=== PATIENT | female | born 1960 | race Caucasian/White ===

== ENCOUNTER 2020-02-19 17:34 | Emergency (ER) | payer MEDICAID, SELFPAY ==
[2020-02-19 17:52] VITALS: BP 131/87; PULSE 80; RESP 18; TEMP 37.1; O2SAT 99; BMI 29.8
--- NOTE | 2020-02-19 18:05 | ED_ITS ---
HPI - Skin/Abscess/Foreign Bdy General: Chief complaint: Skin/Abscess/Foreign Body Stated complaint: issue with left breast Time Seen by Provider: 02/19/20 17:49 Source: patient Mode of arrival: ambulatory Limitations: no limitations History of Present Illness: HPI narrative: 59-year-old female who presents here with a area of erythema to her left breast. She denies any drainage from the spot states that roughly 1 to 2 cm in diameter. She states that slightly painful to touch and rates the pain a 2 out of 10 and is sharp in nature. She denies any fevers. Denies any worsening improving factors. Associated symptoms: Deny chills, fever(s), nausea or vomiting Review of Systems Const: Denies: fever(s), chills, body aches or change in appetite Eyes: Denies: blurry vision or eye discomfort ENMT: Denies: throat pain or dental pain Card: Denies: chest pain Resp: Denies: dyspnea GI: Denies: abdominal pain, nausea, vomiting or diarrhea : Denies: dysuria Musc: Denies: neck pain or back pain Skin/Breast: Denies: rash Neuro: Denies: headache(s) Psych: Denies: depression Jose Antonio/Lymph: Denies: easy bruising All/Imm: Denies: urticaria Physical Exam Const: COMMON NORMALS: no acute distress, patient oriented x3 and healthy appearing HENMT: COMMON NORMALS: normocephalic and atraumatic HEAD & SCALP: normocephalic and atraumatic Eye: COMMON NORMALS: Equal, round and reactive pupils present and EOMs intact bilaterally PUPIL: Yes Equal, round and reactive pupils present Neck/C-Spine: COMMON NORMALS: full ROM and supple Chest: COMMONS NORMALS: normal inspection of the chest and normal palpation of entire chest wall Resp: COMMON NORMALS: normal respiratory effort, No retractions, No use of accessory muscles and clear to auscultation bilaterally AUSCULTATION: clear to auscultation bilaterally Cardio: COMMON NORMALS: regular rate, regular rhythm and No murmurs present (Cardio) RATE: regular rate RHYTHM: regular rhythm GI: COMMON NORMALS: Normal to inspection, nondistended, normoactive bowel sounds present, Soft to palpation, non-tender and no masses PALPATION: Yes Soft to palpation Extremity: COMMON NORMALS: normal to inspection and full ROM Neuro: COMMON NORMALS: patient oriented x3, moves all extremities and no focal motor deficits Psych: COMMON NORMALS: mental status grossly normal, Normal thought process present and cooperative THOUGHT PROCESS: Normal thought process present Skin: NARRATIVE SKIN EXAM: 1 to 2 cm area of erythema to left breast noted on exam. No obvious abscess formation at this time. Course Vital Signs: Vital signs: Vital Signs Temperature 98.7 F 02/19/20 17:52 Pulse Rate 80 02/19/20 17:52 Respiratory Rate 18 02/19/20 17:52 Blood Pressure 131/87 02/19/20 17:52 Pulse Oximetry 99 02/19/20 17:52 MDM - Skin/Abscess/Foreign Bdy MDM Narrative: Medical decision making narrative: Patient presents here with cellulitis and possible early abscess formation of the left breast. She has no obvious abscess at this time I do not see the area to try to drain. We will have her do warm compresses and place her on Bactrim and she is to return if worsening. She understands agrees to plan. Discharge Plan Discharge Patient Disposition: Home Clinical Impression: Abscess of skin or subcutaneous tissue Qualifiers: Site of cutaneous abscess: unspecified site Qualified Code(s): L02.91 - Cutaneous abscess, unspecified Condition: Stable Prescriptions: New Bactrim DS 800-160 mg tablet 1 tab PO BID 10 Days Qty: 20 RF: 0 Discharge Orders: Discharge Order (Routine); Ordered 02/19/20 Ordered By: Elina Gomez Referrals: Salas George DO [Primary Care Provider] - 1-3 days Discharge Diet: Advance as tolerated Discharge Activity: Resume usual activity Patient Instructions: Abscess (ED) Coding Level of Care Code ED White Sugar Supervisor for Kevin Betts
== END 2020-02-19 18:11 | disposition home or self-care (01) ==
PROVIDERS: Emergency Provider Emergency Medicine; PCP Internal Medicine
DX: L02.91 Cutaneous abscess, unspecified (principal)
CPT/HCPCS: 12345; 99281

== ENCOUNTER 2022-04-28 14:55 | Emergency (ER) | payer MEDICAID, SELFPAY ==
[2022-04-28 15:18] VITALS: BP 125/77; PULSE 82; RESP 14; TEMP 36.7; O2SAT 98
[2022-04-28 17:22] VITALS: BP 112/72
--- NOTE | 2022-04-28 17:53 | XRR_ITS ---
PROCEDURE INFORMATION: Exam: XR Left Shoulder Exam date and time: 04/28/2022 6:06 PM Age: 61 years old Clinical indication: Pain; Shoulder; Left; Additional info: Trauma TECHNIQUE: Imaging protocol: Radiologic exam of the Left shoulder. Views: 2 or more views. COMPARISON: No relevant prior studies available. FINDINGS: Bones/joints: There is an impacted fracture of the surgical neck left humerus with mild angulation. The left acromioclavicular joint alignment is intact. There is sclerosis and deformity of the greater tuberosity humerus that may reflect old healed fracture. No dislocation. The visualized ribs are intact. Lungs: The visualized lung apex is clear. Soft tissues: Mild edema. XR/XR shoulder LT min 2V* [id number] IMPRESSION: There is an impacted fracture of the surgical neck left humerus with mild angulation. There is also sclerosis and deformity of the greater tuberosity humerus suspected to be an old injury.
--- NOTE | 2022-04-28 17:53 | XRR_ITS ---
PROCEDURE INFORMATION: Exam: XR Right Clavicle, Complete Exam date and time: 04/28/2022 6:06 PM Age: 61 years old Clinical indication: Pain; Other: Clavicle; Additional info: Trauma TECHNIQUE: Imaging protocol: Radiologic exam of the Right clavicle. Complete exam. Views: Any number of views. COMPARISON: No relevant prior studies available. FINDINGS: Bones/joints: Normal. No acute fracture or dislocation. There are moderate to severe acromioclavicular joint degenerative changes with probable acromioclavicular joint effusion. Glenohumeral joint alignment is intact. Lungs: Right lung apex is clear. Pleural space: There is no evidence of pneumothorax. Soft tissues: Normal. XR/[place] [id number] IMPRESSION: No acute findings.
--- NOTE | 2022-04-28 17:55 | W.ED.FALL ---
HPI - Fall General: Chief Complaint: Fall Stated Complaint: fall, left arm pain Time Seen by Provider: 04/28/22 17:25 History of Present Illness: Patient comes in with left shoulder pain. States that she was outside when she slipped on the ice and fell landing on her left shoulder. States it hurts to move. On physical exam she has tenderness palpation over the anterior aspect of her left shoulder. Her left arm is neurovascularly intact. Associated symptoms-after fall: Denies abdominal pain, chest pain, headache(s) or neck pain Review of Systems Const: Denies: fever(s) or body aches Eyes: Denies: change in vision or blurry vision ENMT: Denies: throat pain or odynophagia Card: Denies: chest pain or palpitations Resp: Denies: dyspnea or productive cough GI: Denies: abdominal pain, nausea or vomiting : Denies: flank pain or dysuria Musc: Denies: neck pain or back pain Skin/Breast: Denies: rash or pruritus Neuro: Denies: headache(s) or numbness in extremities Psych: Denies: anxiety or change in appetite Endo: Denies: polyuria or excessive sweating Physical Exam Const: COMMON NORMALS: patient oriented x3, healthy appearing and alert HENMT: COMMON NORMALS: normocephalic and atraumatic HEAD & SCALP: normocephalic and atraumatic Eye: COMMON NORMALS: Equal, round and reactive pupils present and EOMs intact bilaterally PUPIL: Yes Equal, round and reactive pupils present Neck/C-Spine: COMMON NORMALS: full ROM and supple Resp: COMMON NORMALS: normal respiratory effort, No retractions and No use of accessory muscles Extremity: OTHER: Tenderness to palpation of the anterior left shoulder, decreased range of motion due to pain Neuro: COMMON NORMALS: patient oriented x3 SENSORIUM/ORIENTATION: Yes alert Psych: COMMON NORMALS: mental status grossly normal and cooperative Skin: COMMON NORMALS: no rashes or lesions noted and no wounds GENERAL SKIN EXAM: no rashes or lesions noted Course Vital Signs: Vital signs: Vital Signs Temperature 98.1 F 04/28/22 15:18 Pulse Rate 82 04/28/22 15:18 Respiratory Rate 14 04/28/22 15:18 Blood Pressure 112/72 04/28/22 17:22 Pulse Oximetry 98 04/28/22 15:18 Oxygen Delivery Me thod 04/28/22 15:18 MDM - Fall Medical Decision Making Patient comes in with left shoulder pain. States that she was outside when she slipped on the ice and fell landing on her left shoulder. States it hurts to move. On physical exam she has tenderness palpation over the anterior aspect of her left shoulder. Her left arm is neurovascularly intact. Will check x-ray, and reassess. On reassessment I talked to the patient about the test results. We will place her in a sling, prescribed pain medication, refer to orthopedic surgery, and discharged with precautions to return for worsening or changing symptoms. Lab Data Radiology Impressions Clavicle X-Ray 04/28/22 17:53 IMPRESSION: No acute findings. Shoulder X-Ray 04/28/22 17:53 IMPRESSION: There is an impacted fracture of the surgical neck left humerus with mild angulation. There is also sclerosis and deformity of the greater tuberosity humerus suspected to be an old injury. Discharge Plan Discharge Patient Disposition: Home Clinical Impression: Fracture, humerus Condition: Stable Prescriptions: New hydrocodone-acetaminophen 5-325 mg tablet 1 tab PO Q6H PRN (Reason: pain) Qty: 20 0RF Discharge Orders: Discharge ED (Routine); Ordered 04/28/22 Ordered By: Vlad Prince Referrals: Tiffany Padron FNP [Primary Care Provider] - Kenroy Chavez DO [Physician] - Patient Instructions: Proximal Humerus Fracture (ED), Opioid Safety, Pain Management Coding Level of Care Code ED Inventory Checker for Chg Fwd Exam Detailed
[2022-04-28 20:27] VITALS: RESP 20
== END 2022-04-28 20:29 | disposition home or self-care (01) ==
PROVIDERS: Emergency Provider Emergency Medicine; PCP Nurse Practitioner Family
DX: S42.212A Unspecified displaced fracture of surgical neck of left humerus, initial encounter for closed fracture (principal); W00.0XXA Fall on same level due to ice and snow, initial encounter
CPT/HCPCS: 73000; 73030; 99283

== ENCOUNTER → 2022-05-08 15:31 | Outpatient (BNVA) | payer MEDICAID, SELFPAY | PROVIDERS: PCP Nurse Practitioner Family; Visit Provider Student in an Organized Health Care Education/Training Program | DX: S42.202A Unspecified fracture of upper end of left humerus, initial encounter for closed fracture (principal); W00.0XXA Fall on same level due to ice and snow, initial encounter | CPT/HCPCS: 23600; 73030; 99204 ==

== ENCOUNTER → 2022-06-09 09:24 | Outpatient (BNVA) | payer MEDICAID, SELFPAY | PROVIDERS: PCP Nurse Practitioner Family; Visit Provider Student in an Organized Health Care Education/Training Program | DX: S42.202A Unspecified fracture of upper end of left humerus, initial encounter for closed fracture (principal); X58.XXXA Exposure to other specified factors, initial encounter | CPT/HCPCS: 73030; 99213 ==

== ENCOUNTER → 2022-07-25 13:49 | Outpatient (BNVA) | payer MEDICAID, SELFPAY | PROVIDERS: PCP Nurse Practitioner Family; Visit Provider Student in an Organized Health Care Education/Training Program | DX: S42.202A Unspecified fracture of upper end of left humerus, initial encounter for closed fracture (principal); W00.0XXA Fall on same level due to ice and snow, initial encounter | CPT/HCPCS: 73030; 99213 ==

== ENCOUNTER → 2022-08-14 13:25 | Outpatient (BNVA) | payer MEDICAID, SELFPAY | PROVIDERS: PCP Nurse Practitioner Family; Visit Provider Student in an Organized Health Care Education/Training Program | DX: M17.11 Unilateral primary osteoarthritis, right knee (principal) | CPT/HCPCS: 73560; 73565; 99214 ==

== ENCOUNTER → 2022-08-19 14:24 | Outpatient (BNVA) | payer MEDICAID, SELFPAY | PROVIDERS: PCP Nurse Practitioner Family; Visit Provider Family Medicine | DX: Z01.818 Encounter for other preprocedural examination (principal) | CPT/HCPCS: 80048; 85025 ==

== ENCOUNTER 2022-08-28 12:39 | Outpatient (CLI) | payer MEDICAID, SELFPAY ==
--- NOTE | 2022-08-28 13:15 | CT_ITS ---
WS: [id number] CT RIGHT KNEE, NONCONTRAST TECHNIQUE: Noncontrast CT of the RIGHT knee to include the RIGHT hip and ankle. CLINICAL INFORMATION: M17.11 - Unilateral primary osteoarthritis, right knee COMPARISON: None. DLP: 866.[address] scans at [facility] use at least one of these dose optimization techniques: automated e xposure control; mA and/or kV adjustment per patient size (includes targeted exams where dose is matc hed to clinical indication); or iterative reconstruction. FINDINGS: Advanced degenerative narrowing RIGHT knee medial joint compartment with [id number]-lt-ghgo articulation. A ssociated subchondral sclerosis. Hypertrophic changes along the joint line. Small supra patellar effu jessica. Hypertrophic patella. Small lobulated popliteal cyst. Mild degenerative narrowing both hips. CT/CT knee RT wo con* [id number] IMPRESSION: Images obtained for preoperative purposes.
== END 2022-08-28 12:40 | disposition home or self-care (01) ==
LOC: RAD 12:42
PROVIDERS: PCP Nurse Practitioner Family; Visit Provider Student in an Organized Health Care Education/Training Program
DX: M17.11 Unilateral primary osteoarthritis, right knee (principal)
CPT/HCPCS: 73700

== ENCOUNTER 2022-09-03 10:19 | Observation (INO) | payer MEDICAID, SELFPAY ==
[2022-09-02 11:25] VITALS: BMI 30.2
[2022-09-02 12:14] LABS: Basophils # 0.1 10^3/uL (0.0-0.1); Basophils % 0.7 %; Eosinophils # 0.1 10^3/uL (0.0-0.8); Eosinophils % 1.1 %; Hemoglobin 13.9 g/dL (11.5-15.3); Lymphocytes # 3.5 10^3/uL (0.8-4.8); Lymphocytes % 36.6 %; Mean Corpuscular HGB Conc 33.1 g/dL (30.0-36.0); Mean Corpuscular Hemoglobin 30.8 pg (28.0-34.0); Mean Corpuscular Volume 93.1 fl (81-99); Mean Platelet Volume 9.9 fL (7.4-10.4); Monocytes # 0.6 10^3/uL (0.2-0.9); Monocytes % 6.5 %; Neutrophils # 5.26 10^3/uL (1.8-7.7); Neutrophils % 54.8 %; Nucleated Red Blood Cells % 0 %; Platelet Count 329 10^3/cmm (130-400); Red Blood Count 4.51 10^6/uL (4.1-5.3); Red Cell Distribution Width 12.3 % (12.1-15.1); White Blood Count 9.6 10^3/uL (4.0-10.0)
--- NOTE | 2022-09-02 12:27 | P.ANESASSM_ITS ---
Pre-Anesthetic Assessment Height/Weight: Height 1.52 m Weight 70.307 kg Operation Date: 09/03/22 07:00 Proposed Procedures p Geovanni Robot Total Knee Arthroplasty(Right) - Kenroy Chavez DO Familial anesthetic complications: None Social No alcohol and No tobacco Exam alert, oriented x 3, clear to auscultation bilaterally and regular rate & rhythm Airway Mallampati: Class II Dentition: false History/ROS No significant complaints Anesthetic Plan ASA status: 1 Anesthesia: General Risk of > 500 ml blood loss (7ml/kg in children): No Medications/Allergies Home Medications Medication Instructions Recorded Confirmed Last Taken Type ibuprofen 200 mg PO PRN PRN Pain 09/02/22 09/02/22 Unknown History Allergies Allergy/AdvReac Type Severity Reaction Status Date / Time Penicillins Allergy ALGY-Anaphy Verified 08/30/22 08:01 laxis [facility] Anesthesia Medical History Closed fracture of left proximal humerus Data Anesthesia 09/02/22 11:55 09/02/22 11:55 Short CBC 09/02/22 Range/Units 11:55 WBC 9.6 (4.0-10.0) 10^3/uL Hgb 13.9 (11.5-15.3) g/dL Hct 42.0 (37.0-47.0) % MCV 93.1 (81-99) fl Plt Count 329 (130-400) 10^3/cmm Neut % (Auto) 54.8 % Neut # (Auto) 5.26 (1.8-7.7) 10^3/uL Cardiac Studies: No Data to Display
[2022-09-02 12:35] LABS: Blood Urea Nitrogen 10 mg/dL (8-23); Calcium 9.6 mg/dL (8.5-10.5); Carbon Dioxide 24 mmol/L (22-29); Chloride 104 mmol/L (98-107); Glucose 84 mg/dL (65-115); Osmolality Calculated 288 mOsm/kg (285-295); Sodium 140 mmol/L (136-145)
[2022-09-02 12:55] LABS: Add Urine Microscopic? YES; Bilirubin Urine Neg (Negative); Blood Urine 2+ (Negative); Glucose Urine UA Norm (Normal); Ketones Urine Negative (Negative); Leukocyte Esterase Urine Negative (Negative); Nitrate Urine Negative (Negative); Protein Urine Neg (Negative); Urine Appearance Clear (CLEAR); Urine Color Light yellow (Yellow); Urobilinogen Urine Norm (Negative); pH Urine 5 (5-7)
[2022-09-02 12:56] LABS: Add Urine Culture? No; Bacteria Urine TRACE /hpf; RBC Urine 0-4 /hpf (0-2); Squamous Epithelial Cell Urine 0-4 /hpf (0-5); WBC Urine 0-4 /hpf (0-5)
[2022-09-03] VITALS (14 sets, daily range): BP systolic 103–133; BP diastolic 59–80; PULSE 66–91; RESP 12–18; TEMP 36.3–37; O2SAT 94–99
--- NOTE | 2022-09-03 06:14 | ECG_ITS ---
[facility] Test Date: 2022-09-03 Pat Name: Kendra Huynh Department: Room: Gender: Female Security Management Specialist: : 1960 Requested By: Kenroy Chavez Order Number: [id number] Zhen MD: Chris Mckinney M.D. Measurements Intervals [place] Rate: 70 P: 27 GA: 159 QRS: 1 QRSD: 82 T: 93 QT: 392 QTc: 425 Interpretive Statements SINUS RHYTHM POSSIBLE RIGHT VENTRICULAR CONDUCTION DELAY [RSR (QR) IN V1/V2] NONSPECIFIC T-WAVE ABNORMALITY INTERPRETATION BASED ON A DEFAULT AGE OF 40 YEARS No previous ECG available for comparison Electronically Signed On 09-03-2022 14:24:24 CDT by Chris Mckinney M.D. [id number]
[2022-09-03] MEDS: acetaminophen 1,000 MG/100 ML PIGGYBACK 400 MG IV ×3 (06:34→21:04)
[2022-09-03] MEDS: sodium chloride 0.9% 1,000 ML 30 ML IV (06:41)
[2022-09-03] MEDS: ketorolac 30 mg/mL INJ IVP (06:47)
--- NOTE | 2022-09-03 06:49 | P.ANESUD_ITS ---
Pre-Anesthetic Update Pre-Anesthetic Assessment: Date of Surgery/Procedure: 09/03/22 Preop Diana gnosis: Right knee degenerative joint disease Proposed Procedure: Operation Date: 09/03/22 07:00 Proposed Procedures p Geovanni Robot Total Knee Arthroplasty(Right) - Kenroy Chavez, DO Any changes to Pre-Anesthetic Assessment?: No Last Intake: Intake Last Liquid Date 09/02/22 Last Liquid Time 23:00 Last Solid Date 09/02/22 Last Solid Time 20:30 Labs Last 48hrs: Short CBC 09/02/22 Range/Units 11:55 WBC 9.6 (4.0-10.0) 10^3/ uL Hgb 13.9 (11.5-15.3) g/dL Hct 42.0 (37.0-47.0) % MCV 93.1 (81-99) fl Plt Count 329 (130-400) 10^3/c mm Neut % (Auto) 54.8 % Neut # (Auto) 5.26 (1.8-7.7) 10^3/u L BMP 09/02/22 11:55 Sodium 140 Potassium 4.0 Chloride 104 Carbon Dioxide 24 BUN 10 Creatinine 0.5 Glucose 84 Calcium 9.6 Urine 09/02/22 Range/Units 11:58 Urine Color Light yellow (Yellow) Urine Appearance Clear (CLEAR) Urine pH 5 (5-7) Ur Specific Gravit y 1.010 (1.005-1.030) Urine Protein Neg (Negative) Urine Glucose (UA) Norm (Normal) Urine Ketones Negative (Negative) Urine Nitrate Negative (Negative) Urine Bilirubin Neg (Negative) Ur Leukocyte Sabrina ase Negative (Negative) Urine RBC 0-4 H (0-2) /hpf Urine WBC 0-4 H (0-5) /hpf Blood Bank 09/02/22 11:55 Blood Type O Negative Rho(D) Type Negative Antibody Screen Negative Vitals: Temperature 97.5 F L 09/03/22 06:12 Temperature Source Temporal Artery S can 09/03/22 06:12 Pulse Rate 75 09/03/22 06:12 Respiratory Rate 16 09/03/22 06:12 Blood Pressure 133/80 09/03/22 06:12 Blood Pressure Fatuma n 97 09/03/22 06:12 Pulse Oximetry 99 09/03/22 06:12 Oxygen Delivery Me thod Room Air 09/03/22 06:12 Exam: Pre-Anes Outpt Exam: alert, oriented x 3, clear to auscultation bilaterally and regular rate & rhythm Cardiac Studies: No Data to Display
--- NOTE | 2022-09-03 06:55 | W.PM.OPSUD ---
Surgery/Procedure H&P Update DATE OF PROCEDURE: September 03, 2022 DATE H&P PERFORMED: 08/14/22 CHANGES TO PREVIOUS DOCUMENTATION: None. Patient's failed conservative treatment for her right knee. We had detailed discussion in the outpatient setting and she like to proceed with a right total knee arthroplasty. She has had gel and cortisone injection years ago the subsequently went on to not provide any long-term relief of her pain. At this point time patient denies any change in her health since her last visit. Denies any recent illness denies any urinary symptoms denies any chest pain shortness of breath nausea vomiting fever chills. Once again we detailed out the risk benefits complication alternatives with surgical nonsurgical treatment options. Understanding risk of surgery she agrees to proceed with surgical intervention all questions answered. Plan for right total knee arthroplasty today. PREOP DIAGNOSIS: Right knee degenerative joint disease PRIMARY INDICATION FOR PROCEDURE: Right knee degenerative joint disease with [id number] arthritis PLANNED PROCEDURE: Operation Date: 09/03/22 07:00 Proposed Procedures p Geovanni Robot Total Knee Arthroplasty(Right) - Kenroy Chavez DO
[2022-09-03] MEDS: clindamycin 600 MG/50 ML PREMIX 100 MG IV (06:59)
[2022-09-03] MEDS: vancomycin 1,500 MG/300 ML PIGGYBACK 200 MG IV (07:31)
[2022-09-03] MEDS: tranexamic acid 1,000 mg/10mL SDV 1000 MG XX (08:08)
[2022-09-03] MEDS: EPINEPHrine 1 mg/mL INJ XX (08:08)
[2022-09-03] MEDS: ketorolac 30 mg/mL INJ XX (08:08)
--- NOTE | 2022-09-03 09:40 | XR_ITS ---
XR knee RIGHT 3V* [id number] REASON FOR EXAM: post R TKA FINDINGS: Total RIGHT knee arthroplasty. Components of the arthroplasty are intact and in proper position and alignment. No focal bone abnormality. XR/XR knee RT 3V* [id number] IMPRESSION: Total RIGHT knee arthroplasty without abnormality. WS: [id number] XR knee LT 3V* [id number] REASON FOR EXAM: post L TKA FINDINGS: Total left knee arthroplasty. Components of the arthroplasty are intact and in proper position and alignment. No focal bone abnormality. [facility] RT 3V* [id number] IMPRESSION: Total left knee arthroplasty without abnormality.
--- NOTE | 2022-09-03 10:05 | PM.CONSULT ---
Providers/Reason For Consult Consulting Physician/Specialty*: holden Moya Reason for Consult*: Medical management Requesting Physician: Dr. Chavez Attending Physician: Kenroy Chavez DO Primary Care Provider: PRECIOUS Lewis History of Present Illness History of Present Illness Kendra Huynh is a 62 year old female presenting today for right total knee arthroplasty. Hospitalist services consulted, by the orthopedic service to address any issues that come up during hospitalization. Patient herself is in the recovery area, and denies any complaints currently. She reports she does not believe she has had a cholesterol checked recently. Review of Systems General: Reports: 10 or more systems reviewed and unremarkable except in HPI and below Const: Denies: fever(s) or chills Card: Denies: chest pain Resp: Denies: dyspnea Medications/Allergies Home Medications Medication Instructions Recorded Confirmed Last Taken Type ibuprofen 200 mg PO PRN PRN Pain 09/02/22 09/02/22 Unknown History Allergies Allergy/AdvReac Type Severity Reaction Status Date / Time Penicillins Allergy ALGY-Anaphy Verified 08/30/22 08:01 laxis Current Medications Generic Name Dose Route Start Last Admin Trade Name Freq PRN Reason Stop Dose Admin Sodium Chloride 1,000 mls @ 30 mls/hr 09/03/22 06:15 09/03/22 06:41 Sodium Chloride 0.9% IV 09/04/22 06:14 30 mls/hr .Q24H DARREN Administration PFSH Acute PFSH: Medical History (Updated 09/03/22 @ 10:09 by Jaime Sierra MD) Closed fracture of left proximal humerus Surgical History (Updated 09/03/22 @ 10:07 by Jaime Sierra MD) History of appendectomy Family History (Updated 09/03/22 @ 10:07 by Jaime Sierra MD) Other CAD (coronary artery disease) Social History (Updated 09/03/22 @ 10:07 by Jaime Sierra MD) Smoking and tobacco status: never smoked Alcohol intake: never Vitals/I&O/Wt Last Vital Signs Temp 97.3 F L 09/03/22 09:31 Pulse 66 09/03/22 09:54 Resp 16 09/03/22 09:54 BP 103/80 09/03/22 09:54 Pulse Ox 97 05/03/23 09:54 O2 Del Method Room Air 09/03/22 09:54 09/02/22 09/03/22 09/03/22 22:59 06:59 14:59 Intake Total 100 / 100 160 / 160 Output Total 270 / 270 Balance 100 / 100 -110 / -110 Weight last 48 hrs Weight 70.307 kg Physical Exam Narrative: General exam demonstrates no distress, conversant. Chilling post anesthesia HEENT: Pupils equally round. Oropharynx clear Neck is supple no lymphadenopathy thyromegaly Cardiovascular regular rate and rhythm without murmur Lungs clear no wheezing or crackles Abdomen is soft with positive bowel sounds. No obvious organomegaly exam is deferred Extremities no cyanosis clubbing edema Skin demonstrates xanthelasmas on the eyelids Urinary Catheter Management: Blanco: Cath Placed During This Visit: yes Urinary Catheter Date of Insertion: 09/03/22 Urinary Catheter Time of Insertion: 07:30 Data 09/02/22 11:55 09/02/22 11:55 Other Labs: UA reviewed and essentially negative EKG demonstrates normal sinus rhythm, normal axis, nonspecific ST-T wave changes I reviewed all of her preoperative laboratory in detail. A&P Assessment and plan (1) Right knee DJD: Status post right knee total arthroplasty Blood loss minimal DVT prophylaxis per orthopedics We will follow along, respond to any concerns this is a occur Blood work has been ordered for tomorrow to check for postoperative anemia (2) Xanthelasma of eyelid: Plan Discussed with patient. Recommend outpatient cholesterol check Consult Attestations Medical Necessity Statement: As per primary Diagnoses Right knee DJD M17.11 Xanthelasma of eyelid H02.60 Time Spent (min) 29
--- NOTE | 2022-09-03 10:08 | PM.OP2 ---
Brief Operative Note Date of procedure: 09/03/22 Pre-op diagnosis: Right knee degenerative joint disease Post-op diagnosis: same Procedure Done: Right total knee arthroplasty?Geovanni robotic assisted Surgeon: Kenroy Chavez Estimated blood loss (mL): 20 Complications: None Post-op Plan: Patient taken to PACU in stable condition recovering well. Internal medicine will be on board and consulted for medical management. Patient to be admitted postoperatively to the floor. Patient received appropriate discharge instructions as well as pain medication DVT prophylaxis postoperatively. Received PT/OT weightbearing as tolerated to the operative extremity DVT prophylaxis and postoperative antibiotics on the floor. Dressing will be changed as needed. Plan for likely discharge tomorrow. Plan to follow-up 2 weeks postop in the orthopedic office Condition: stable Disposition: floor Coding Level of Care Code Acute Code for Kevin Betts
--- NOTE | 2022-09-03 10:08 | PM.PACU ---
PACU note Narrative: Patient taken to PACU in stable condition recovering well. Spinal anesthesia still on affect. Unable to assess motor or sensory secondary to spinal anesthesia distal pulses are palpable toes warm and well-perfused. Dressing on in place to the right knee is clean dry and intact. Compartment soft compressible. Exam: awake Disposition: admitted
--- NOTE | 2022-09-03 10:08 | PM.OP ---
Operative Report Date of procedure: September 03, 2022 Pre-op diagnosis: Preop Diagnosis Right knee degenerative joint disease Procedure: Procedure: Post-op diagnosis: Same Procedure done: Right total knee arthroplasty, cemented?robotic assisted Geovanni Implants: Danae triathlon size 2 femur? CR cemented Strathmore triathlon size 2 tibia universal baseplate cemented Danae triathlon symmetric patella size 27 mm Strathmore triathlon polyethylene 11 mm Danae cement Surgeon: Kenroy Chavez DO Estimated blood loss: 20 mL Tourniquet time: 57 minutes IV fluids: 1000 mL Spinal anesthesia Urine output: 250 mL Complications: None Condition: stable Disposition: floor Brief History: Kendra is a pleasant 62-year-old female my practice with chronic right knee degenerative joint disease.? Patient's failed conservative treatment at this point in time patient's pain has been debilitating and patient's daily living.? We talked about continued conservative approach versus operative intervention for right knee given the [id number] arthritis and tricompartmental degenerative changes would recommend a right total knee arthroplasty as pt has failed conservative treatment.? Through shared decision making patient would like to proceed with right total knee arthroplasty. ? We talked about continued conservative treatment and surgical intervention as far as the risk benefits complications alternatives surgical and nonsurgical treatment options.? At this point time understanding pts risks with surgery pt agrees to proceed with surgical intervention.? Patient's been worked up in her preoperative clinic and is been medically optimized for surgical intervention.? Once again? risk with surgery include but are not limited to make it better make it worse blood clot, heart attack, stroke, on the table, infection, injury to nerves or vessels, persistent pain, arthrofibrosis, implant failure, infection.? Understanding these risks patient agrees to proceed with surgical intervention consent was obtained in the office.? All questions answered. Procedure: Patient was seen and evaluated in the preoperative holding area.? Consent was reviewed and signed with patient with plan for right total knee arthroplasty.? All questions answered.? Correct extremities marked.? Patient seen and evaluated by the anesthesia department and once cleared for surgery was taken back to the operative suite.? Patient was placed into a supine position on the OR table.? All bony prominences were well-padded.? Patient was appropriately secured to the bed.? Patient underwent anesthesia per the anesthesia department.? Patient received spinal anesthesia..? A nonsterile tourniquet was applied to the right thigh.? At this point in time a final timeout performed.? Patient received appropriate preoperative antibiotics and TXA. Next the right lower extremity was then prepped and draped in standard orthopedic fashion.?Esmarch tourniquet was used exsanguinate the right lower extremity.? Tourniquet was insufflated to 250 mmHg. A standard anterior incision was made over midline of the knee.? Sharp scalpel excision through skin and subcutaneous tissue full-thickness skin flaps were made.? Fascia was elevated off of the extensor retinaculum was stable with medial parapatellar arthrotomy was then made.? The performed standard sequential releases with standard medial releases patient had a varus deformity.? Visualization of all 3 compartments was found to have eburnated bone in all 3 compartments with osteophyte formation.? Most pronounced medial joint space collapse with [id number] articulation.? Next the the patella was then stuffed laterally and the knee was then flexed.? Nikole was placed superiorly and medial around the anterior aspect of the femur this was freed of synovium and I subsequently then placed by 2 femur pins to establish my femur arrays for the Geovanni robot.? These were then placed bicortically and? femur array was then appropriately secured with appropriate visualization.? Next attention was turned towards the tibial rays.? These were then drilled sequentially bicortically in parallel fashion and intraincisional.? I then placed my guide as well as my tibial array on in place.? This was appropriately secured and had excellent visualization with the Geovanni robot.? Next the tibial checkpoint as well as femur checkpoint were then placed.? At this point time I then subsequently established my head center as well as my medial lateral malleoli as well as my checkpoints.? Next utilizing standard Geovanni technology I then mapped out the appropriate points and confirmation points around the femur as well as the tibia in standard fashion.? Once this was then done I then removed all osteophytes in preparation for dynamic testing.? All osteophytes were removed as well as I removed the ACL and PCL was attenuated and insufficient as result this was then subsequently removed as well.? Plan was for an ultracongruent poly which would accommodate for the incompetent PCL.? Anterior horn of the lateral meniscus was excised.? At this point time the knee was brought into full extension and we performed our standard evaluation of our gap balancing stressing? ligaments and extension as well as flexion appropriate adjustments were made to have appropriate gap balancing in both flexion and extension.? Made appropriate adjustments for appropriate gap balancing altering our femoral and tibial cuts.? We get a preoperative plan evaluating our implants which was a size 2 femur and a size 2 tibia.? Next we brought in the Geovanni robot and sequentially made our femur cuts.? All? bony cuts were then removed.? Finally we made our tibial cut.? Once this was done a standard PCL retractor was then placed into this position I excised the medial and lateral meniscus.? The tibial cut was then subsequently removed all excess bony debris was removed.?? I then utilized a lamina candy spreader helper and remove the posterior osteophytes.? At this point time sized the tibia and confirmed this was a size 2.? I utilized our blunt probe to establish rotation of tibial implant using Agent Partner robot technology.? Once this was done I then placed my tibia size 2 trial in appropriate position and then subsequently placed tibial pins to hold this into place placed a size 11 mm poly as well as a size 2 femur which was appropriately impacted in place knee was then subsequently brought into extension.? When brought into extension the gaps were perfectly balanced and was stable with varus valgus stress.? I was satisfied with this is my final poly.? This was stable in full extension mid flexion as well as flexion having symmetrically balance gaps.? This was determined to be the appropriate poly thickness. At this point I was satisfied with these implants these were then verified and opened on the back table size 2 tibia, size 2 femur,? size 11 mm polythickness.? We did confirm appropriate gap balancing and stresses as well as alignment utilizing? Geovanni and were satisfied with this plan.? ?At this point time with my trials in place I then towel clip the patella everted this made appropriate measurements subsequently utilizing freehand technique performed by patellar resurfacing this was confirmed to be appropriate resection and subsequently sized to be a 27 mm symmetric patella.? my drill peg guides were then clamped and appropriate position and appropriate position in the patella for appropriate tracking and parallel with the joint.? Pegs were drilled trial implant was placed and the knee was then subsequently ranged and found to have excellent patellar tracking.? Femur pegs were then drilled.? ? At this point time all of our trial implants were removed.? All checkpoints as well as guidepins and arrays were removed and appropriate counts made. Satisfied with our tibial placement rotation I then utilized the keel punch and prepped the tibia.? The wound bed? was thoroughly irrigated and dried and prepped for cementation.? Cement was mixed on the back table.? Once cement was ready this was then covered onto the tibia and the tibial baseplate was then impacted and all excess cement was removed.? Next the polyethylene was then impacted into place on the tibial baseplate.? Next cement was placed onto the femur as well as under the femur implants and impacted in to place and all excess cement was extruded.? Knee was taken into full extension? to clear all excess cement was removed.? Warm saline was placed over the joint.? I then towel clip patella and dried for cementation. cemented the patella into place.? This was all clamped and the cement was allowed to cure.? Thorough irrigation performed with pulse lavage.? I then placed my periarticular injection while the cement was curing.? Once cured the knee was taken through range of motion and had excellent stability and gaps balances.? Tourniquet was then deflated.? Once tourniquet was deflated hemostasis satisfactory with electrocautery.? Next I then subsequently closed the capsule with Ethibond suture as well as a running strata fix suture.? Knee was then taken through range of motion 30 times.? Next the skin was then closed in layered fashion of running stratifix sutures of deep and subcutenous tissue and skin.? Skin was then closed in flexion with a running 3-0 strata fix suture.? Skin was closed with Prineo glue.? Incision was covered with OpSite, ABDs soft roll and Beto wrap.? Patient was then awakened from anesthesia and taken to PACU in stable condition. Disposition: Patient taken to PACU in stable condition will be admitted to the floor for pain control PT/OT weight-bear as tolerated right lower extremity dressing changes as needed, DVT prophylaxis.?Pain control. Patient will receive appropriate postoperative antibiotics. patient will be seen today by the internal medicine team for medical management.? Patient will follow up with the office in 2 weeks.? Patient understands agrees with current plan.? All questions answered.
--- NOTE | 2022-09-03 10:28 | SUR.EXTENDED ---
patient into extended care while waiting for room/nurse available on second floor. patient awake and alert, states no pain at this time. patient has 450ml urine emptied from avery. patient in prep room with and daughter at bedside. ice on incision.
--- NOTE | 2022-09-03 10:59 | SUR.EXTENDED ---
report given to angelic HO. patient to be transported to [facility]
--- NOTE | 2022-09-03 11:14 | SUR.EXTENDED ---
patient taken to 272 awake and alert. patiet able to move foot. states no pain. on room air with sats at 96%. patients daughter present on transport. angelic HO in room on arrival.
[2022-09-03] MEDS: lactated ringers 1,000 ML 100 ML IV (11:30)
[2022-09-03] MEDS: chlorhexidine gluconate 0.12% Btl 473 mL 30 ML MUCOUS MEM ×3 (13:12→21:07)
--- NOTE | 2022-09-03 14:06 | ANE.PACU2 ---
Inpatient post-anesthesia follow up: Airway intact: Yes Vital signs: Temperature 98 F Pulse Rate 90 Respiratory Rate 16 Blood Pressure 128/68 Pulse Oximetry 98 Oxygen Delivery Me thod Room Air Oxygen Flow Rate Fraction of Inspir ed Oxygen Hydration adequate: Yes Nausea and vomiting: No Pain level: 1 Mental status: Baseline
[2022-09-03] MEDS: clindamycin 900 MG/50 ML PREMIX 100 MG IV ×2 (15:06→22:22)
[2022-09-03] MEDS: docusate sodium 100 mg Capsule PO (16:50)
[2022-09-03] MEDS: iron polysaccharide complex 150 mg Capsule PO (16:50)
[2022-09-03] MEDS: calcium carb-vit d 600mg/400unit 1 Tablet 1 EACH PO (16:50)
--- NOTE | 2022-09-03 18:39 | PC.NURSE ---
PATIENT HAS DONE WELL TODAY. WORKED WITH PHYSICAL THERAPY. PAIN WELL CONTROLLED. GOOD APPETITE. NO NAUSEA. SURGICAL DRESSING C/D/I. SAT UP IN THE CHAIR TWICE. CURRENTLY RESTING IN BED.
[2022-09-04 01:05] VITALS: RESP 20
[2022-09-04] MEDS: oxyCODONE 5 mg IR Tab/Cap PO ×3 (01:05→12:08)
[2022-09-04] MEDS: lactated ringers 1,000 ML 100 ML IV (03:50)
[2022-09-04 04:00] VITALS: BP 115/59; PULSE 68; RESP 14; TEMP 36.9; O2SAT 99
[2022-09-04] MEDS: acetaminophen 1,000 MG/100 ML PIGGYBACK 400 MG IV (05:17)
[2022-09-04] MEDS: clindamycin 900 MG/50 ML PREMIX 100 MG IV (06:03)
[2022-09-04 06:13] LABS: Basophils % 0.2 %; Eosinophils % 0.1 %; Hematocrit 35.3 % (37.0-47.0); Hemoglobin 11.6 g/dL (11.5-15.3); Lymphocytes # 3.4 10^3/uL (0.8-4.8); Lymphocytes % 19.6 %; Mean Corpuscular HGB Conc 32.9 g/dL (30.0-36.0); Mean Corpuscular Hemoglobin 30.6 pg (28.0-34.0); Mean Corpuscular Volume 93.1 fl (81-99); Monocytes # 1.6 10^3/uL (0.2-0.9); Monocytes % 9.1 %; Neutrophils # 12.29 10^3/uL (1.8-7.7); Neutrophils % 70.5 %; Nucleated Red Blood Cells % 0 %; Platelet Count 281 10^3/cmm (130-400); Red Blood Count 3.79 10^6/uL (4.1-5.3); Red Cell Distribution Width 12.4 % (12.1-15.1); White Blood Count 17.4 10^3/uL (4.0-10.0)
[2022-09-04] MEDS: vancomycin 1,500 MG/300 ML PIGGYBACK 200 MG IV (06:32)
[2022-09-04 06:34] LABS: Anion Gap 13.1 (5-19); Blood Urea Nitrogen 9 mg/dL (8-23); Calcium 8.8 mg/dL (8.5-10.5); Carbon Dioxide 24 mmol/L (22-29); Chloride 107 mmol/L (98-107); Glomerular Filtration Rate 161.7 mL/min (90-130); Glucose 104 mg/dL (65-115); Osmolality Calculated 289 mOsm/kg (285-295); Potassium 4.1 mmol/L (3.5-5.1); Sodium 140 mmol/L (136-145)
[2022-09-04 07:54] VITALS: RESP 16
[2022-09-04] MEDS: multivitamin therapeutic Tablet 1 TAB PO (07:54)
[2022-09-04] MEDS: iron polysaccharide complex 150 mg Capsule PO (07:54)
[2022-09-04] MEDS: calcium carb-vit d 600mg/400unit 1 Tablet 1 EACH PO (07:54)
[2022-09-04] MEDS: aspirin 325 mg EC Tablet PO (07:54)
[2022-09-04] MEDS: docusate sodium 100 mg Capsule PO (07:55)
[2022-09-04] MEDS: chlorhexidine gluconate 0.12% Btl 473 mL 30 ML MUCOUS MEM (07:55)
[2022-09-04 08:00] VITALS: BP 112/69; PULSE 66; RESP 16; TEMP 36.8; O2SAT 98
--- NOTE | 2022-09-04 08:49 | PM.PN ---
Subjective Subjective: Kendra reports that the knee hurts some. Otherwise she is doing well. She is hopeful to go home today. No other concerns. Medications: Reviewed: Yes Vitals/I&O/Wt Last Vital Signs Temp 98.2 F 09/04/22 08:00 Pulse 66 09/04/22 08:00 Resp 16 09/04/22 08:00 BP 112/69 09/04/22 08:00 Pulse Ox 98 09/04/22 08:00 O2 Del Method Room Air 09/04/22 08:00 09/03/22 09/04/22 09/04/22 22:59 06:59 14:59 Intake Total 660 / 2340 800 / 3140 300 / 300 Output Total 725 / 1945 Balance -65 / 395 800 / 1195 300 / 300 Weight last 48 hrs Weight 70.307 kg Physical Exam Narrative: General exam no distress Cardiovascular regular rate and rhythm without murmur Lungs clear no wheezing or crackles Abdomen is soft with positive bowel sounds. No obvious organomegaly Extremities no cyanosis clubbing edema. No foot drop Urinary Catheter Management: Blanco: Cath Placed During This Visit: yes, but has since been removed by the nurse Reason for Continuing Indwelling Catheter: Decision to DC Catheter Urinary Catheter Date of Insertion: 09/03/22 Urinary Catheter Time of Insertion: 07:30 Date Urinary Catheter Removed: 09/03/22 Time Urinary Catheter Discontinued: 21:14 Data 09/04/22 05:59 09/04/22 05:59 A&P Assessment and plan (1) Right knee DJD: Postoperative day #1 status post knee arthroplasty. Doing well (2) Xanthelasma of eyelid: Discussed with patient the need for outpatient lipid profile Plan Laboratory reviewed, no overall concerns. White blood cell count increased secondary to demargination from stress of surgery. Attestations Medical Necessity Statement*: As per primary Diagnoses Right knee DJD M17.11 Xanthelasma of eyelid H02.60 Time Spent (min) 14
[2022-09-04 12:08] VITALS: RESP 16
--- NOTE | 2022-09-04 12:50 | P.DS_ITS ---
Discharge Providers Date of Admission: 09/03/22 10:19 Date of Discharge: September 04, 2022 Attending Provider at Admission: Kenroy Chavez DO Attending Provider at Discharge: Kenroy Chavez DO Consults: Dr. Sierra?internal medicine hospitalist Primary Care Provider: PRECIOUS Lewis Diagnoses at Discharge Discharge Diagnosis (1) Right knee DJD: Status: Resolved (2) Xanthelasma of eyelid: Status: Acute Reason for Visit Reason for Visit: M17.11 - Unilateral primary osteoarthritis, right Brief History: Right knee degenerative joint disease Hospital Course Hospital Course Patient presented to the preoperative holding area with plan for right total knee arthroplasty after patient has been worked up in the outpatient setting for failed conservative treatment of right knee degenerative joint disease.? Once cleared by anesthesia for surgery patient subsequently was taken back to the operative suite she underwent spinal anesthesia and then subsequently underwent a right total knee arthroplasty.? Procedure was performed without any complications patient was taken to PACU in stable condition patient? recovered well in PACU and then was admitted to the floor postoperatively internal medicine was consulted and on board for medical management and assistance with care.? Patient received appropriate PT/OT, postoperative antibiotics, postoperative TXA, pain control, postoperative DVT prophylaxis.? Elevation and ice.? Patient encouraged for knee range of motion allowed weightbearing as tolerated to the right lower extremity.? Dressing was changed as needed her labs were monitored daily.? Patient recovered well postoperatively and worked well and progressed well with therapy.? It was determined on postoperative day 1 the patient was stable for discharge from an orthopedic standpoint as well as internal medicine standpoint.? Patient was comfortable with discharge and plan was discharged home.? Patient received appropriate discharge instructions as well as pain medication and DVT prophylaxis postoperatively.? Given appropriate instructions for her dressing management.? Patient will follow-up with Dr. Chavez/orthopedics in the office in 2 weeks.? All questions answered.? Understand if there is any issues questions or concerns and contact the office. Physical Exam Narrative: Patient seen and examined postoperative day 1: Examination of the right lower extremity demonstrates dressings on in place clean dry and intact. Patient's compartments are soft and compressible no calf tenderness. Spinal anesthesia is worn off patient has full sensation of the right lower extremity she is able to wiggle her toes, plantarflex and dorsiflex ankle. Distal pulses are palpable. Toes are warm well-perfused brisk capillary refill less than 2 seconds Urinary Catheter Management: Blanco: Cath Placed During This Visit: yes, but has since been removed by the nurse Reason for Continuing Indwelling Catheter: Decision to DC Catheter Urinary Catheter Date of Insertion: 09/03/22 Urinary Catheter Time of Insertion: 07:30 Date Urinary Catheter Removed: 09/03/22 Time Urinary Catheter Discontinued: 21:14 Discharge Data Studies Completed and Pending Completed Studies During Hospitalization Category Date Time Status XR knee LT 3V* [id number] Routine Exams 09/03/22 09:40 Completed Pending at discharge Category Date Time Status Basic Metabolic Panel AM LABS Lab 09/05/22 04:00 Ordered Basic Metabolic Panel AM LABS Lab 09/06/22 04:00 Ordered Complete Blood Count w/Auto AM LABS Lab 09/05/22 04:00 Ordered Complete Blood Count w/Auto AM LABS Lab 09/06/22 04:00 Ordered Radiology Impressions Knee X-Ray 09/03/22 09:40 IMPRESSION: Total left knee arthroplasty without abnormality. Laboratory Results WBC 17.4 10^3/uL (4.0-10.0) H 09/04/22 05:59 RBC 3.79 10^6/uL (4.1-5.3) L 09/04/22 05:59 Hgb 11.6 g/dL (11.5-15.3) 09/04/22 05:59 Hct 35.3 % (37.0-47.0) L 09/04/22 05:59 MCV 93.1 fl (81-99) 09/04/22 05:59 MCH 30.6 pg (28.0-34.0) 09/04/22 05:59 MCHC 32.9 g/dL (30.0-36.0) 09/04/22 05:59 RDW 12.4 % (12.1-15.1) 09/04/22 05:59 Plt Count 281 10^3/cmm (130-400) 09/04/22 05:59 MPV 10.0 fL (7.4-10.4) 09/04/22 05:59 Neut % (Auto) 70.5 % 09/04/22 05:59 Lymph % (Auto) 19.6 % 09/04/22 05:59 Sac % (Auto) 9.1 % 09/04/22 05:59 Eos % (Auto) 0.1 % 09/04/22 05:59 Baso % (Auto) 0.2 % 09/04/22 05:59 Neut # (Auto) 12.29 10^3/uL (1.8-7.7) H 09/04/22 05:59 Lymph # (Auto) 3.4 10^3/uL (0.8-4.8) 09/04/22 05:59 Sac # (Auto) 1.6 10^3/uL (0.2-0.9) H 09/04/22 05:59 Eos # (Auto) 0.0 10^3/uL (0.0-0.8) 09/04/22 05:59 Baso # (Auto) 0.0 10^3/uL (0.0-0.1) 09/04/22 05:59 Nucleated RBC % (auto) 0 % 09/04/22 05:59 Nucleated RBCs # 0.0 /100WBC 09/04/22 05:59 Sodium 140 mmol/L (136-145) 09/04/22 05:59 Potassium 4.1 mmol/L (3.5-5.1) 09/04/22 05:59 Chloride 107 mmol/L (98-107) 09/04/22 05:59 Carbon Dioxide 24 mmol/L (22-29) 09/04/22 05:59 Anion Gap 13.1 (5-19) 09/04/22 05:59 BUN 9 mg/dL (8-23) 09/04/22 05:59 Creatinine 0.4 mg/dL (0.5-0.9) L 09/04/22 05:59 GFR Calculation 161.7 mL/min (90-130) H 09/04/22 05:59 Glucose 104 mg/dL (65-115) 09/04/22 05:59 Calculated Osmolality 289 mOsm/kg (285-295) 09/04/22 05:59 Calcium 8.8 mg/dL (8.5-10.5) 09/04/22 05:59 Urine Color Light yellow (Yellow) 09/02/22 11:58 Urine Appearance Clear (CLEAR) 09/02/22 11:58 Urine pH 5 (5-7) 09/02/22 11:58 Ur Specific Peterson 1.010 (1.005-1.030) 09/02/22 11:58 Urine Protein Neg (Negative) 09/02/22 11:58 Urine Glucose (UA) Norm (Normal) 09/02/22 11:58 Urine Ketones Negative (Negative) 09/02/22 11:58 Urine Blood 2+ (Negative) H 09/02/22 11:58 Urine Nitrate Negative (Negative) 09/02/22 11:58 Urine Bilirubin Neg (Negative) 09/02/22 11:58 Urine Urobilinogen Norm mg/dL (Negative) 09/02/22 11:58 Ur Leukocyte Esterase Negative (Negative) 09/02/22 11:58 Urine RBC 0-4 /hpf (0-2) H 09/02/22 11:58 Urine WBC 0-4 /hpf (0-5) H 09/02/22 11:58 Ur Squamous Epith Cells 0-4 /hpf (0-5) H 09/02/22 11:58 Amorphous Sediment Not Reportable 09/02/22 11:58 Urine Bacteria Trace /hpf (NONE) 09/02/22 11:58 Blood Type O Negative 09/02/22 11:55 Rho(D) Type Negative 09/02/22 11:55 Antibody Screen Negative 09/02/22 11:55 Procedures Performed Right total knee arthroplasty?Geovanni robotic assisted Vitals Last Vital Signs Temp 98.2 F 09/04/22 08:00 Pulse 66 09/04/22 08:00 Resp 16 09/04/22 12:08 BP 112/69 09/04/22 08:00 Pulse Ox 98 09/04/22 08:00 O2 Del Method Room Air 09/04/22 08:00 Discharge Plan Discharge Patient Disposition: Home Condition: Stable Prescriptions: New Percocet 5-325 mg tablet 1 tab PO Q6H PRN (Reason: pain) 7 Days Qty: 28 0RF Colace 100 mg capsule 100 mg PO DAILY PRN (Reason: constipation) 10 Days Qty: 10 0RF ondansetron 4 mg tablet,disintegrating 4 mg PO DAILY 5 Days Qty: 5 0RF calcium carbonate-vitamin D3 600 mg-10 mcg (400 unit) Tablet 1 ea PO BID 30 Days Qty: 60 0RF aspirin 325 mg tablet 325 mg PO BID 14 Days Qty: 28 0RF Discontinued ibuprofen 200 mg PO PRN PRN (Reason: Pain) Discharge Orders: Discharge Order (Routine); Ordered 09/04/22 Ordered By: Kenroy Chavez Other Ambulatory Orders: DME: Walker (Order) Location: None Selected Ordered By: Kenroy Chavez Referrals: Tiffany Padron FNP [Primary Care Provider] - 4-7 days (clinic will contact pt.) Bejnamín Jarquin FNP [Physician Lithographic Photographer] - 09/18/22 10:30 am ([facility]) Discharge Diet: Advance as tolerated Discharge Activity: Increase activity as tolerated Patient Instructions: Oxycodone/Acetaminophen (By mouth), Aspirin (By mouth), Laxative, Stool Softeners (By mouth), Ondansetron (By mouth), Knee Replacement (GEN), Opioid Safety Activity Restrictions/Additional Instructions: Orthopedic discharge instructions: Patient should leave Beto bandage dressing on in place for 48 to 72 hours after that may remove bandage. May clean around white bandage covering the incision leave this bandage on for 7 days postoperatively at that time may remove and then rinse incision with warm soapy water pat dry and redress with a dry dressing. Weight-bear as tolerated the right lower extremity Encourage knee range of motion as tolerated Take pain medication as prescribed Take aspirin 325 mg twice daily for blood clot prevention Take antinausea medication as needed Supplement with Citracal vitamin D for bone health and healing Supplement with Colace for constipation if needed Follow-up with Dr. Chavez in the office in 2 weeks Contact the office for any questions or concerns Discharge Attestations Time Spent in Discharge Care*: greater than 30 min Quality Metrics Clinical Quality Measures [ No reported AMI, CVA or VTE this stay] Coding Level of Care Code Acute Code for Chg Fwd Diagnoses Right knee DJD M17.11 Xanthelasma of eyelid H02.60
[2022-09-04 14:07] VITALS: RESP 16
== END 2022-09-04 14:08 | disposition home or self-care (01) ==
LOC: MEDSURG 10:19
PROVIDERS: Admitting Provider Student in an Organized Health Care Education/Training Program; PCP Nurse Practitioner Family; Visit Provider Student in an Organized Health Care Education/Training Program
PROC: 8E0Y0CZ Robotic Assisted Procedure of Lower Extremity, Open Approach (ICD-10-PCS; CPT 27447; principal; 2022-09-03 07:00)
DX: M17.11 Unilateral primary osteoarthritis, right knee (principal); H02.60 Xanthelasma of unspecified eye, unspecified eyelid
CPT/HCPCS: 27447; 36415; 51702; 73562; 80048; 81001; 85025; 86850; 86900; 93005; 97110; 97161; 97165; 97530; C1776; G0378; J0131; J0171; J1100; J1885; J2250; J2370; J2704; J2795; J3010; J3370; J3490; J7030; J7120

== ENCOUNTER → 2022-09-15 16:06 | Outpatient (BNVA) | payer MEDICAID, SELFPAY | PROVIDERS: PCP Nurse Practitioner Family; Visit Provider Student in an Organized Health Care Education/Training Program | DX: Z96.651 Presence of right artificial knee joint (principal) | CPT/HCPCS: 73560; 73565; 99024 ==

== ENCOUNTER → 2022-10-27 14:05 | Outpatient (BNVA) | payer MEDICAID, SELFPAY | PROVIDERS: PCP Nurse Practitioner Family; Visit Provider Student in an Organized Health Care Education/Training Program | DX: Z96.651 Presence of right artificial knee joint (principal) | CPT/HCPCS: 73560; 73565; 99024 ==

== ENCOUNTER → 2022-12-18 13:34 | Outpatient (BNVA) | payer MEDICAID, SELFPAY | PROVIDERS: PCP Nurse Practitioner Family; Visit Provider Student in an Organized Health Care Education/Training Program | DX: Z96.651 Presence of right artificial knee joint (principal) | CPT/HCPCS: 73560; 73565; 99213 ==

== ENCOUNTER → 2023-07-24 10:35 | Outpatient (BNVA) | payer MEDICAID, SELFPAY | PROVIDERS: PCP Nurse Practitioner Family; Visit Provider Student in an Organized Health Care Education/Training Program | DX: Z96.651 Presence of right artificial knee joint (principal) | CPT/HCPCS: 73560; 73565; 99213 ==

== ENCOUNTER → 2023-09-10 12:57 | Outpatient (BNVA) | payer MEDICAID, SELFPAY | PROVIDERS: PCP Nurse Practitioner Family; Visit Provider Physician Assistant | DX: Z96.651 Presence of right artificial knee joint (principal) | CPT/HCPCS: 73560; 73565; 99213 ==